=== PATIENT | male | born 1985 ===

== ENCOUNTER 2022-08-31 17:12 | Observation (INO) | payer SELFPAY ==
[2022-08-31] MEDS ORDERED: ceFAZolin 1 GM in Premix Bag 1 BAG IV ONE (18:42)
[2022-08-31] MEDS ORDERED: VANCOmycin 1.5 GM/300 ML 300 ML IV ONE (19:00)
[2022-08-31 19:25] LABS: CARBON DIOXIDE,CO2 27.8 mmol/L (21.0-32.0); POTASSIUM,K 3.7 mmol/L (3.5-5.1)
[2022-08-31] MEDS ORDERED: oxyCODONE 5 MG Tab PO PRN (21:51)
[2022-08-31] MEDS ORDERED: Morphine 2 MG/ML SYRINGE IVPUSH PRN (21:51)
[2022-08-31] MEDS ORDERED: Acetaminophen 325 MG Tab PO PRN (21:51)
[2022-08-31] MEDS ORDERED: Enoxaparin 40 MG/0.4 ML Syringe SUBCUT SCH (22:00)
[2022-08-31] MEDS ORDERED: cefTRIAXone 1 GM in Sodium Chloride 0.9% 50 ML IV SCH (23:00)
[2022-09-01] MEDS ORDERED: cefTRIAXone 1 GM in Sodium Chloride 0.9% 50 ML IV SCH (03:00)
[2022-09-01 06:22] LABS: CARBON DIOXIDE,CO2 24.9 mmol/L (21.0-32.0)
== END 2022-09-01 16:40 | disposition home or self-care (01) ==
LOC: MW.ED 17:12 → MW.MS 20:06
PROVIDERS: ADMIT Internal Medicine; ATTEND Internal Medicine
DX: L03.115 Cellulitis of right lower limb (principal); Z20.822 Contact with and (suspected) exposure to COVID-19
CPT/HCPCS: 36415; 73590; 80048; 80202; 85025; 87040; 87635; 93971; A9270; J0690; J0696; J1650; J2270; J3370; J7050; U0002

== ENCOUNTER 2022-09-16 09:44 | Emergency (ER) | payer SELFPAY ==
[2022-09-16] MEDS ORDERED: Sulfamethoxazole/Trimethoprim 800-160 MG Tab PO ONE (10:04)
[2022-09-16 10:55] LABS: CARBON DIOXIDE,CO2 27.1 mmol/L (21.0-32.0); POTASSIUM,K 4.3 mmol/L (3.5-5.1)
== END 2022-09-16 11:19 | disposition home or self-care (01) ==
LOC: MW.ED 09:44
DX: L03.116 Cellulitis of left lower limb (principal)
CPT/HCPCS: 36415; 80053; 85025; 99283; A9270

== ENCOUNTER 2023-05-03 19:13 | Emergency (ER) | payer SELFPAY | END 2023-05-03 20:20 | disposition left against medical advice (07) | LOC: MW.ED 19:13 → MERGE 19:13 → MW.ED 20:20 | DX: Z53.21 Procedure and treatment not carried out due to patient leaving prior to being seen by health care provider (principal) ==